=== PATIENT | male | born 1970 | race African-American/Black ===

== ENCOUNTER 2018-11-07 10:13 | Emergency (ER) | payer MEDICAID ==
[~2018-11-07] VITALS: Ht 198.1 cm; Wt 113.9 kg
[2018-11-07] MEDS ORDERED: INDOMETHACIN 25 MG CAP PO ONE (10:45)
[2018-11-07] MEDS ORDERED: cloNIDine HCL 0.1 MG TAB PO ONE (10:45)
[2018-11-07] MEDS ORDERED: KETOROLAC TROMETH 60MG/2ML VIAL IM ONE (10:45)
[2018-11-07] MEDS ORDERED: METOPROLOL SUCCINATE XL 50 MG TAB PO ONE (11:00)
[2018-11-07 12:09] VITALS: BP 138/88
== END 2018-11-07 12:49 | disposition home or self-care (01) ==
LOC: ER 10:19
DX: M79.645 Pain in left finger(s) (principal); I11.0 Hypertensive heart disease with heart failure; I50.9 Heart failure, unspecified; E11.9 Type 2 diabetes mellitus without complications; X58.XXXA Exposure to other specified factors, initial encounter; Y93.89 Activity, other specified; Y92.89 Other specified places as the place of occurrence of the external cause; Y99.8 Other external cause status
CPT/HCPCS: 73130; 82962; 93005

== ENCOUNTER 2024-08-14 12:27 | Emergency (ER) | payer BC, MEDICAID ==
[~2024-08-14] VITALS: Ht 198.1 cm; Wt 130.6 kg
[2024-08-14 12:45] VITALS: BP 142/76; PULSE 79; RESP 16; TEMP 98.1; O2SAT 97
[2024-08-14] MEDS ORDERED: CYCL-837 PO (12:48)
[2024-08-14] MEDS ORDERED: IBUP-1455 PO (12:48)
--- NOTE | 2024-08-14 12:48 | ED.PDOC ---
Musculoskeletal HPI Comments Patient complaining of right hamstring pain. Patient [place] when a woman started to fall he tried to catch her and felt a pop sensation in his right hamstring. Patient went to the urgent care today was referred to the emergency department because had no imaging. Patient states he has been able to walk and has had some mild improvement from yesterday but it still hurts, he feels a knot in the back of his hamstring. Chief Complaint: Lower Extremity Time Seen by MD: 12:34 Primary Care Provider: Mary Reviewed Notes: Nurses Notes Allergies: Coded Allergies: NO KNOWN ALLERGIES (Unverified , 08/14/24) Information Source: Patient Mode of Arrival: Ambulatory Location: Right Extremity Location: Leg Past Medical History PAST MEDICAL HISTORY: CHF, DM, Gout, HTN Constitutional: denies: chills, diaphoresis, fatigue, fever, malaise, sweats, weakness, others EENTM: denies: blurred vision, double vision, ear bleeding, ear discharge, ear drainage, ear pain, ear ringing, eye pain, eye redness, hearing loss, mouth pain, mouth swelling, nasal discharge, nose bleeding, nose congestion, nose pain, photophobia, tearing, throat pain, throat swelling, voice changes, others Respiratory: denies: cough, hemoptysis, orthopnea, SOB at rest, shortness of breath, SOB with excertion, stridor, wheezing, others Cardiovascular: denies: chest pain, dizzy spells, diaphoresis, Dyspnea on e xertion, edema, irregular heart beat, left arm pain, lightheadedness, palpitations, PND, syncope, others Gastrointestinal: denies: abdomen distended, abdominal pain, blood streaked bowels, constipated, diarrhea, dysphagia, difficulty swallowing, hematemesis, melena, nausea, poor appetite, poor fluid intake, rectal bleeding, rectal pain, vomiting, others Genitourinary: denies: burning, dysuria, flank pain, frequency, hematuria, incontinence, penile discharge, penile sore, pain, testicle pain, testicle swelling, urgency, others Neurological: denies: dizziness, fainting, headache, left sided numbness, left sided weakness, numbness, paresthesia, pre-existing deficit, right sided numbness, right sided weakness, seizure, speech problems, tingling, tremors, weakness, others Musculoskeletal: reports: muscle pain, muscle stiffness Physical Exam General Appearance: No Apparent Distress, Normal HEENT: Normal ENT Inspection, Pharynx Normal, TMs Normal Neck: Full Range of Motion, Non-Tender, Normal, Normal Inspection Respiratory: Chest Non-Tender, Lungs Clear, No Accessory Muscle Use, No Respiratory Distress, Normal Breath Sounds Cardiovascular: No Edema, No JVD, No Murmur, No Gallop, Normal Peripheral Pulses, Regular Rate/Rhythm Breast Exam: Deferred Gastrointestinal: No Organomegaly, Non Tender, No Pulsatile Mass, Normal Bowel Sounds, Soft Genitalia: Deferred Pelvic: Deferred Rectal: Deferred Extremities: No calf tenderness, Normal capillary refill, No pedal edema, Other (Patient able to ambulate without assistance, able to bear full weight on right leg. Tender to palpation over right hamstring. Proximal hamstring is firm to touch. No bruising noted.) Musculoskeletal : Apperance: Normal Neurologic: Alert, mold bunch trimmer II-XII nml as Tested, No Motor Deficits, Normal Affect, Normal Mood, No Sensory Deficits Cerebellar Function: Normal Reflexes: Normal Skin: Dry, Normal Color, Warm Lymphatic: No Adenopathy Was a procedure done? Was a procedure done?: No Differential Diagnosis EXT Differential Diagnosis: Cellulitis, CHF, Deep Vein Thrombosis X-Ray, Labs, Meds, VS Vital Signs Date Time Temp Pulse Resp B/P (MAP) Pulse Ox O2 Delivery O2 Flow Rate FiO2 08/14/24 12:34 99.1 91 18 153/73 (99) 98 99.1 X-Ray, Labs, Meds, VS Comment Imaging: X-rays and CT scans were reviewed and interpreted by this provider, imaging shows no fractures and no pathological disease. Pending radiology rev iew. Laboratory: Labs reviewed and interpreted by this provider. No significant abnormalities noted. Patient has prior medical visits reviewed. Med reconciliation performed Vital signs reviewed Time of 1ST Reevaluation: 12:48 Reevaluation 1ST: Improved Patient Education/Counseling: Diagnosis, Treatment, Need For Follow Up (Follow up with the consumer education specialist next available appointment.) Family Education/Counseling: Diagnosis, Treatment Departure 1 Departure Time of Disposition: 12:47 Impression: Primary Impression: Pulled hamstring Qualified Codes: S76.311A - Strain of muscle, fascia and tendon of the posterior muscle group at thigh level, right thigh, initial encounter Disposition: HOME / SELF CARE / HOMELESS Condition: Fair e-Prescriptions Ibuprofen Micronized (Ibuprofen) 800 Mg Tab 800 MG PO TID PRN, #30 TAB Prov: MIGUEL BRUCE 08/14/24 Cyclobenzaprine Hcl (Cyclobenzaprine Hcl) 5 Mg Tab 1 TAB PO TID PRN, #30 TAB Prov: MIGUEL BRUCE 08/14/24 Discharged With: Self Critical Care Note Critical Care Time?: No Stability Stability form required: No Heart Score Heart Score: Heart Score Response (Comments) Value History N/A 0 EKG N/A 0 Age N/A 0 Risk Factors N/A 0 Troponin N/A 0 Total 0 MIGUEL BRUCE Aug 14, 2024 12:48
== END 2024-08-14 13:02 | disposition home or self-care (01) ==
LOC: ER 12:27
DX: M79.604 Pain in right leg (principal); I11.0 Hypertensive heart disease with heart failure; I50.9 Heart failure, unspecified; E11.9 Type 2 diabetes mellitus without complications; M25.651 Stiffness of right hip, not elsewhere classified; X50.9XXA Other and unspecified overexertion or strenuous movements or postures, initial encounter; Y92.89 Other specified places as the place of occurrence of the external cause; Y99.8 Other external cause status